=== PATIENT | female | born 1975 | race Caucasian/White ===

== ENCOUNTER 2023-03-19 10:08 | Emergency (ER) | payer OTHER ==
[2023-03-19] MEDS ORDERED: Sodium Chloride 0.9% 10 ML Syringe FLUSH PRN (10:40)
[2023-03-19] MEDS ORDERED: diphenhydrAMINE 50 MG/ML SDV IVPUSH ONE (10:41)
[2023-03-19] MEDS ORDERED: Famotidine 20 MG/2 ML SDV IVPUSH ONE (10:41)
[2023-03-19] MEDS ORDERED: methylPREDNISolone Sodium Succinate 125 MG/2 ML SDV IVPUSH ONE (10:41)
== END 2023-03-19 12:34 | disposition home or self-care (01) ==
LOC: JD.ED 10:08
DX: L50.0 Allergic urticaria (principal); J01.91 Acute recurrent sinusitis, unspecified; Z88.0 Allergy status to penicillin; Z88.6 Allergy status to analgesic agent
CPT/HCPCS: 96374; 96375; 99283; J1200; J2930; J3490

== ENCOUNTER 2023-03-25 16:59 | Emergency (ER) | payer OTHER ==
[2023-03-25] MEDS ORDERED: Triamcinolone Acetonide 40 MG/ML 1 ML SDV IM ONE (17:38)
[2023-03-25] MEDS ORDERED: Alum Hydrox/Mag Hydrox/Simeth 30 ML, Lidocaine 2% 15 ML PO ONE ×2 (17:44)
[2023-03-25] MEDS ORDERED: SUMAtriptan 6 MG/0.5 ML SDV SUBCUT ONE (18:13)
== END 2023-03-25 19:13 | disposition home or self-care (01) ==
LOC: JD.ED 16:59
DX: K20.90 Esophagitis, unspecified without bleeding (principal); T38.0X5A Adverse effect of glucocorticoids and synthetic analogues, initial encounter; T36.1X5A Adverse effect of cephalosporins and other beta-lactam antibiotics, initial encounter; Z88.8 Allergy status to other drugs, medicaments and biological substances; Z88.0 Allergy status to penicillin
CPT/HCPCS: 96372; 99283; A9270; J3030; J3301